=== PATIENT | female | born 1970 | race Caucasian/White ===

== ENCOUNTER 2023-03-31 16:43 | Emergency (ER) | payer OTHER ==
[~2023-03-31] VITALS: Ht 162.6 cm; Wt 86.0 kg
[2023-03-31 16:54] VITALS: BP 118/71; PULSE 77; RESP 16; TEMP 98.3; O2SAT 97
[2023-03-31] MEDS ORDERED: KETOROLAC 60MG/2ML VIAL IM ONE (17:45)
[2023-03-31] MEDS ORDERED: DEXAMETHASONE 10 MG/ML VIAL IM ONE (17:45)
== END 2023-03-31 18:27 ==
LOC: ER 16:43
DX: K12.2 Cellulitis and abscess of mouth (principal); K04.7 Periapical abscess without sinus; Z90.49 Acquired absence of other specified parts of digestive tract
CPT/HCPCS: 99281; J1100; J1885